=== PATIENT | male | born 1955 | race African-American/Black ===

== ENCOUNTER 2020-12-05 20:57 | Emergency (ER) | payer MEDICAID, OTHER ==
[~2020-12-05] VITALS: Ht 170.2 cm; Wt 106.6 kg
[2020-12-05 21:01] VITALS: BP 149/74
== END 2020-12-05 23:40 | disposition home or self-care (01) ==
LOC: ER 20:58
DX: M79.605 Pain in left leg (principal); M79.604 Pain in right leg; F20.0 Paranoid schizophrenia; F31.9 Bipolar disorder, unspecified; Z59.0 Homelessness